=== PATIENT | male | born 1945 | race Caucasian/White ===

== ENCOUNTER → 2016-04-06 | Outpatient (CLI) | payer BC ==
[~2016-04-06] MED LIST: DUTA0.5C PO; FLM4 PO; HYDR12.56 PO
--- NOTE | 2016-04-06 11:33 | DIAGNOSTIC IMAGING REPORT ---
LUMBAR SPINE 5 VIEWS HISTORY: Pain M54.9 Back [id number] COMPARISON: None. FINDINGS: There is no fracture. Slight grade 1 anterolisthesis of L4 on L5. This appears to be secondary to degenerative changes of posterior elements. Minimal to very mild degenerative intervertebral disc changes throughout. IMPRESSION: Mild degenerative change. No acute bony abnormality. Electronically signed by: Jeffery Barnhart M.D. 04/06/2016 11:31 AM Dictated Date/Time: 04/06/2016 11:31 AM
--- NOTE | 2016-04-06 11:45 | DIAGNOSTIC IMAGING REPORT ---
AP PELVIS/BILAT HIP MIN 3-4V CLINICAL HISTORY: Bilateral hip pain COMPARISON STUDY: None. FINDINGS: Moderate cartilage space narrowing and marginal osteophytes within the right hip consistent with osteoarthritis. There is mild left hip osteoarthritis. No fracture or dislocation within the pelvis or hips. The sacrum appears intact. IMPRESSION: Moderate right and mild left hip osteoarthritis. Electronically signed by: Porfirio Weaver M.D. 04/06/2016 11:44 AM Dictated Date/Time: 04/06/2016 11:41 AM
--- NOTE | 2016-04-06 12:37 | DIAGNOSTIC IMAGING REPORT ---
THORACIC SPINE 3 VIEWS CLINICAL HISTORY: Thoracic back pain. No reported history of trauma. FINDINGS: AP, lateral, and swimmer's views of the thoracic spine are obtained. No prior studies are available for comparison at the time of dictation. The skeletal structures are osteopenic. There is no radiographic evidence of fracture or malalignment. There are flowing anterior osteophytes with calcification of the anterior longitudinal ligament consistent with DISH. The transverse processes and pedicles are grossly intact on the frontal view. Mild multilevel degenerative disc space narrowing is noted. The imaged lung parenchyma appears clear. IMPRESSION: 1. No acute bony abnormality is identified involving the thoracic spine. 2. Osteopenia and degenerative change with evidence of DISH as above. Electronically signed by: Angelo Rojas M.D. 04/06/2016 12:36 PM Dictated Date/Time: 04/06/2016 12:35 PM
== END | disposition home or self-care (01) ==
LOC: C.RAD1850 10:23
PROVIDERS: ATTEND Nurse Practitioner Family
DX: M54.9 Dorsalgia, unspecified (principal); M16.0 Bilateral primary osteoarthritis of hip

== ENCOUNTER → 2017-01-30 | Outpatient (CLI) | payer BC | END | disposition home or self-care (01) | LOC: C.LAB1850 11:32 | PROVIDERS: ATTEND Urology | DX: R97.20 Elevated prostate specific antigen [PSA] (principal) ==